=== PATIENT | male | born 1985 | race Two or more races ===

== ENCOUNTER 2018-02-20 02:37 | Inpatient (IN) | payer OTHER ==
[2018-02-20] MEDS ORDERED: LORazepam 1 MG TAB PO ONE ×2 (02:50→08:51)
--- NOTE | 2018-02-20 02:52 | EDPHY ---
H & P Time Seen by Provider: 02/20/18 02:41 HPI/ROS: Chief Complaint: Hearing voices, off his medications HPI: 32-year-old male with a history of schizoaffective disorder has been off his medications for"quite a while". He presented to the crisis Center this morning complaining of hearing voices that are telling him to hurt himself. Patient was evaluated and placed on M1 hold. He was sent here for medical clearance. They are planning on looking for placement for him. Denies any self -injury or ingestions. Denies alcohol or other drug use. No nausea or vomiting. No chest pain or shortness of breath. No fevers or chills or recent illness. ROS: 10 point Review of Systems is negative except as noted in the HPI. PMH: Schizoaffective disorder Social History: Denies smoking, denies alcohol Family History: non-contributory Physical Exam: Gen: Awake, Alert, No Distress HEENT: Nose: no rhinorrhea Eyes: PERRLA, EOMI Mouth: Moist mucosa Neck: Supple, no JVD Chest: nontender, lungs clear to auscultation Heart: S1, S2 normal, no murmur Abd: Soft, non-tender, no guarding Back: no CVA tenderness, no midline tenderness Ext: no edema, non-tender Skin: no rash Neuro: CN II-XII intact, Sensation grossly intact, Strength 5/5 in bilateral upper and lower extremities (Artemio Novak) Constitutional: Initial Vital Signs Temperature (C) 36.5 C 02/20/18 02:50 Heart Rate 78 02/20/18 02:50 Respiratory Rate 18 02/20/18 02:50 Blood Pressure 152/92 H 02/20/18 02:50 O2 Sat (%) 96 02/20/18 02:50 O2 Delivery Mode Room Air Allergies/Adverse Reactions: No Known Allergies Allergy (Unverified 02/20/18 08:25) Home Medications: Medication Instructions Recorded ALPRAZolam [Xanax 1 MG (*)] 1 mg PO DAILY PRN 02/20/18 HYDROcodone BITARTRATE [Hysingla 80 mg PO DAILY 02/20/18 ER] Hydrocodone/Acetaminophen [[place] 1 each PO BID PRN 02/20/18 7.5-325 Tablet] QUEtiapine FUMARATE [Seroquel 100 100 mg PO DAILY 02/20/18 mg (*)] Medical Decision Making ED Course/Re-evaluation: Patient is medically cleared. Pending placement pain [address] Lindsey pending placement. No issues during my care this patient overnight. (Artemio Novak) I assumed care of this patient at shift change. We have met all the patient's needs throughout my shift. We are currently looking for placement. 1135: Patient has been accepted to [facility] for inpatient treatment. (Choco Lindsey) - Data Points Laboratory Results: Laboratory Results 02/20/18 04:35 02/20/18 04:35 02/20/18 02/20/18 02/20/18 04:35 04:35 04:35 WBC 8.07 10^3/uL 10^3/uL (3.80-9.50) RBC 4.83 10^6/uL 10^6/uL (4.40-6.38) Hgb 14.3 g/dL g/dL (13.7-17.5) Hct 42.5 % % (40.0-51.0) MCV 88.0 fL fL (81.5-99.8) MCH 29.6 pg pg (27.9-34.1) MCHC 33.6 g/dL g/dL (32.4-36.7) RDW 11.9 % % (11.5-15.2) Plt Count 284 10^3/uL 10^3/uL (150-400) MPV 10.1 fL fL (8.7-11.7) Neut % (Auto) 50.6 % % (39.3-74.2) Lymph % (Auto) 37.7 % % (15.0-45.0) [place] % (Auto) 8.7 % % (4.5-13.0) Eos % (Auto) 2.5 % % (0.6-7.6) Baso % (Auto) 0.4 % % (0.3-1.7) Nucleat RBC Rel Count 0.0 % % (0.0-0.2) Absolute Neuts (auto) 4.09 10^3/uL 10^3/uL (1.70-6.50) Absolute Lymphs (auto) 3.04 10^3/uL H 10^3/uL (1.00-3.00) Absolute Monos (auto) 0.70 10^3/uL 10^3/uL (0.30-0.80) Absolute Eos (auto) 0.20 10^3/uL 10^3/uL (0.03-0.40) Absolute Basos (auto) 0.03 10^3/uL 10^3/uL (0.02-0.10) Absolute Nucleated RBC 0.00 10^3/uL 10^3/uL (0-0.01) Immature Gran % 0.1 % % (0.0-1.1) Immature Gran # 0.01 10^3/uL 10^3/uL (0.00-0.10) Sodium 144 mEq/L mEq/L (135-145) Potassium 4.7 mEq/L mEq/L (3.5-5.2) Chloride 106 mEq/L mEq/L (97-110) Carbon Dioxide 29 mEq/l mEq/l (22-31) Anion Gap 9 mEq/L mEq/L (8-16) BUN 17 mg/dL mg/dL (7-23) Creatinine 0.9 mg/dL mg/dL (0.7-1.3) Estimated GFR > 60 Glucose 116 mg/dL H mg/dL (70-100) Calcium 9.2 mg/dL mg/dL (8.5-10.4) Urine Opiates Screen NEGATIVE (NEGATIVE) Urine Barbiturates NEGATIVE (NEGATIVE) Ur Phencyclidine Scrn NEGATIVE (NEGATIVE) Ur Amphetamine Screen NEGATIVE (NEGATIVE) U Benzodiazepines Scrn NEGATIVE (NEGATIVE) Urine Cocaine Screen NEGATIVE (NEGATIVE) U Marijuana (THC) Screen NEGATIVE (NEGATIVE) Ethyl Alcohol < 10 mg/dL mg/dL (0-10) Medications Given: Discontinued Medications Lorazepam (Ativan) 1 mg PO EDNOW ONE Stop: 02/20/18 02:51 Last Admin: 02/20/18 03:15 Dose: 1 mg Lorazepam (Ativan) 1 mg PO EDNOW ONE Stop: 02/20/18 08:52 Last Admin: 02/20/18 09:02 Dose: 1 mg Olanzapine (Zyprexa Zydis) 5 mg PO EDNOW ONE Stop: 02/20/18 08:52 Last Admin: 02/20/18 09:02 Dose: 5 mg Departure - Departure Disposition: [facility] IP Clinical Impression: Schizoaffective disorder Qualifiers: Schizoaffective disorder type: other Qualified Code(s): F25.8 - Other schizoaffective disorders Condition: Fair Referrals: NONE *PRIMARY CARE P,. [Primary Care Provider] - As per Instructions
[2018-02-20 04:47] LABS: PLATELET COUNT 284 10^3/uL (150-400)
[2018-02-20] MEDS ORDERED: OLANZapine DISINTEGR 5 MG TAB PO ONE (08:51)
[2018-02-20] MEDS ORDERED: NON-FORMULARY NEW DRUG (Hydrocodone/Acetaminophen [Norco 7.5-325 Tablet] 1 EACH) PO PRN (12:49)
[2018-02-20] MEDS ORDERED: HYDROCODONE/APAP 5/325 TAB PO PRN (12:55)
[2018-02-20] MEDS ORDERED: ACETAMINOPHEN 325 MG TAB PO PRN (12:56)
[2018-02-20] MEDS ORDERED: MAG HYDROX/AL HYDROX/SIMETH 30 ML UDCUP PO PRN (12:56)
[2018-02-20] MEDS ORDERED: MAGNESIUM HYDROXIDE 30 ML UDCUP PO PRN (12:56)
[2018-02-20] MEDS ORDERED: HYDROCODONE BITARTRATE 80 MG PO SCH (13:00)
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
[2018-02-20] MEDS: morphINE SR 15 MG TAB PO SCH (19:12)
[2018-02-20] MEDS: HYDROCODONE/APAP 5/325 TAB PO PRN (19:17)
[2018-02-20] MEDS ORDERED: QUEtiapine FUMARATE 100 MG TAB PO SCH (21:00)
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
[2018-02-21] MEDS: OLANZapine DISINTEGR 10 MG TAB PO PRN ×2 (00:46→07:47)
[2018-02-21] MEDS: HYDROCODONE/APAP 5/325 TAB PO PRN ×2 (00:47→07:44)
[2018-02-21] MEDS: ALPRAZolam 0.5 MG TAB PO PRN (00:48)
[2018-02-21] MEDS: NICOTINE POLACRILEX 2 MG GUM B PRN ×3 (00:49→20:41)
[2018-02-21] MEDS: morphINE SR 15 MG TAB PO SCH (09:25)
[2018-02-21] MEDS ORDERED: QUEtiapine FUMARATE 50 MG TAB PO PRN (10:26)
[2018-02-21] MEDS: NICOTINE 14 MG/24 HR PATCH TD PRN (11:47)
[2018-02-21] MEDS: HYDROCODONE/APAP 10/325 TAB PO SCH ×2 (13:43→17:47)
--- NOTE | 2018-02-21 14:44 | SOAPPROG ---
SOAP Progress Note Assessment/Plan: Assessment: Plan: 02/21/18 14:45 Multiple problems: 1. Psychosis. Will increase Seroquel to 200mg at HS and 50mg PRN. D/c Zyprexa. 2. Opioid withdrawal. Will d/c morphine due to lack of benefit and SE's. Will start hydrocodone/APAP 20mg TID. D/c PRN opioids. Will provide clonidine for current w/drawal. Continue Xanax 1mg PRN. I have a call in to pt's pain mgmt FRAME POLISHER re: proper substitution for Hysingla. Subjective: Pt seen, discussed with staff, Dr. Putnam. Chart reviewed. He is a 32 y/o male with hx of chronic psychosis, possible depression, chronic pain and SI. He was admitted after d/c'ing his usual Seroquel and Xanax. He reports increased AH's of "a voice telling me to kill myself." He also describes, "Seeing visions of myself doing it [killing himself]." He has been quite anxious and agitated since arriving yesterday. He states he is "under a lot of stress" due to worries about losing his job and his being angry at him for being in the hospital "when she needs me to help with the kids." He states, "I just need to get my head straight so I go back to normal life. I can't believe I stopped me meds and screwed everything up." He describes functioning well recently. 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 He state the AH's increased dramatically when he d/c'd the meds and this caused him to be unable to work. He notes not other stressors at this time. Pt c/o "bad withdrawal." He reports nausea and stomach cramps, skin crawling and severe anxiety. Has been taking morphine XR here due to his Hysingla not being on formulary. He requests change to hydrocodone. States he has taken the Hysingla 80mg per day for more than six months. Objective: Vital Signs Temp Pulse Resp BP Pulse Ox 36.0 C 85 18 152/91 H 97 02/20/18 11:48 02/20/18 11:48 02/20/18 11:48 02/20/18 11:48 02/20/18 11:48 MSE: Adequately groomed, pleasant and coop. Moderate level of psychomotor agitation is noted. Affect is constricted, anxious. Mood is "bad." TP is generally linear. TC reveals AH's inc: CAH's of a voice "telling me to kill myself." Denies intent to harm himself, though is "afraid what I would do if I wasn't here." - Time Spent With Patient Time Spent With Patient: 25" ICD10 Worksheet Patient Problems: Problems Problem Status Onset Schizoaffective disorder Acute
[2018-02-21] MEDS: QUEtiapine FUMARATE 100 MG TAB PO SCH (20:41)
[2018-02-22] MEDS: HYDROCODONE/APAP 10/325 TAB PO SCH ×3 (08:52→17:35)
[2018-02-22] MEDS: NICOTINE 14 MG/24 HR PATCH TD PRN (10:10)
[2018-02-22] MEDS: NICOTINE POLACRILEX 2 MG GUM B PRN ×2 (10:40→17:47)
--- NOTE | 2018-02-22 14:20 | SOAPPROG ---
[facility] Progress Note Assessment/Plan: Assessment: Plan: 02/21/18 14:45 Multiple problems: 1. Psychosis. Will increase Seroquel to 200mg at HS and 50mg PRN. D/c Zyprexa. 2. Opioid withdrawal. Will d/c morphine due to lack of benefit and SE's. Will start hydrocodone/APAP 20mg TID. D/c PRN opioids. Will provide clonidine for current w/drawal. Continue Xanax 1mg PRN. I have a call in to pt's pain mgmt AG SERVICE MANAGER re: proper substitution for Hysingla. 02/22/18 14:19 Psychosis: Improved. Visions and voices less prominent, less intrusive. CCM. Pain: W/drawal has resolved. Outpt f/u in place. D/c: Doing well. Possible d/c tomorrow if all is well. Subjective: Pt seen, discussed with staff. States he slept >10 hours last night. Feels "way calmer" with med changes. Tolerating increased dose of SQL well. W/drawal sx's have resolved. I discussed case with pt's outpt pain mgmt AG SERVICE MANAGER who agrees with plan and will provide refill of pain meds on d/c. He stated he will send the prescription to the pharmacy today to make sure it gets there. Objective: Vital Signs Temp Pulse Resp BP Pulse Ox 36.4 C 67 14 111/61 96 02/22/18 06:00 02/22/18 06:00 02/22/18 06:00 02/22/18 06:00 02/22/18 06:00 - Time Spent With Patient Time Spent With Patient: 25" ICD10 Worksheet Patient Problems: Problems Problem Status Onset Schizoaffective disorder Acute
[2018-02-22] MEDS: QUEtiapine FUMARATE 100 MG TAB PO SCH (20:31)
[2018-02-23 06:33] VITALS: BP 114/71
[2018-02-23] MEDS: ALPRAZolam 0.5 MG TAB PO PRN (06:38)
[2018-02-23] MEDS: NICOTINE 14 MG/24 HR PATCH TD PRN (07:40)
[2018-02-23] MEDS: HYDROCODONE/APAP 10/325 TAB PO SCH ×2 (08:54→13:10)
== END 2018-02-23 13:40 | disposition home or self-care (01) | DRG 880 ==
LOC: BBEH 12:10
PROVIDERS: ADMIT Psychiatry & Neurology Psychiatry; ATTEND Psychiatry & Neurology Psychiatry
DX: R45.851 Suicidal ideations (principal); F25.9 Schizoaffective disorder, unspecified; F11.23 Opioid dependence with withdrawal; Z91.5 Personal history of self-harm; M54.5 Low back pain; M25.571 Pain in right ankle and joints of right foot; Z81.8 Family history of other mental and behavioral disorders; F17.210 Nicotine dependence, cigarettes, uncomplicated; Z91.14 Patient's other noncompliance with medication regimen; Z56.0 Unemployment, unspecified
CPT/HCPCS: 80305; G0480